=== PATIENT | female | born 2000 | race Two or more races ===

== ENCOUNTER 2024-02-21 02:46 | Emergency (ER) | payer OTHER ==
[~2024-02-21] VITALS: Ht 160 cm; Wt 79.3 kg
[2024-02-21 03:20] VITALS: BP 121/85; PULSE 59; RESP 16; TEMP 97.9; O2SAT 99
[2024-02-21 05:46] LABS: Urine Bacteria FEW /hpf (None Seen); Urine Blood TRACE /uL (Negative); Urine Clarity Turbid (Clear); Urine Mucus FEW (None Seen); Urine Protein, UAD Negative (Negative); Urine Specific Gravity 1.015 (1.001-1.035); Urine Urobilinogen Normal (Negative); Urine WBC 3 /hpf (0 - 5); Urine pH 5.5 (5.0-9.0)
[2024-02-21 05:47] LABS: Urine Color STRAW (Yellow)
[2024-02-21] MEDS ORDERED: ZOFR4T PO (06:02)
[2024-02-21] MEDS ORDERED: NITR-87 PO (06:02)
[2024-02-21] MEDS: ONDANSETRON ODT 4 MG TAB PO ONE (06:04)
== END 2024-02-21 06:10 | disposition home or self-care (01) ==
LOC: ER 02:46
DX: N39.0 Urinary tract infection, site not specified (principal)
CPT/HCPCS: 81001; 81025; 99283; Q0162

== ENCOUNTER 2025-02-05 05:53 | Emergency (ER) | payer OTHER ==
[~2025-02-05] VITALS: Ht 160 cm; Wt 83.8 kg
[~2025-02-05 05:53] MED LIST: NITR-87 PO; ZOFR4T PO
--- NOTE | 2025-02-05 06:21 | ED.PDOC ---
[employer] HPI Comments 24-year-old female presents here with vaginal bleeding. She is currently 8 weeks . . She states the other 2 pregnancies were elective . She states since yesterday she noticed some light spotting and then today she passed some clots. She does reports lower uterine cramping. Denies any dysuria. No recent cough cold runny nose fever or chills. She states she was planning on keeping this . Chief Complaint: Vaginal Bleed Time Seen by MD: 06:40 Reviewed Notes: Medications, Allergies Allergies: Coded Allergies: NO KNOWN ALLERGIES (Unverified , 02/21/24) Home Meds Active Scripts Ondansetron Odt 4MG Tab (ZOFRAN PO) 4 Mg Tb, 4 MG PO TID PRN for 3 Days, #9 TAB ODT TAB-DISSOLVE IN MOUTH, THEN SWALLOW Prov:[facility] 02/21/24 Nitrofurantoin Monohydrate Mac (Macrobid) 100 Mg Cap, 100 MG PO BID for 5 Days, #10 CAP Prov:[facility] 02/21/24 Information Source: Patient Mode of Arrival: Ambulatory Timing: Days Prehospital treatment: None Severity: Moderate Vaginal Discharge: None Vaginal Lesions: None Bleeding Quality: Bright Red, Clotted Vaginal Mass: None Onset Of Mass/Bleeding: Spontaneous Sexual Activity: Last Consensual [place]: Unknown Control: None History of: Current Symptoms of Possible : Missed Period Associated Signs and Symptoms: Vaginal Bleeding, Cramping Past Medical History PAST MEDICAL HISTORY: Denies Surgical History: Denies all surgeries [employer]CH[employer] History: No Pertinent [employer]OR [employer]CH[employer] History Family History Family History: Reviewed,noncontributory to illness Social History Smoker: Non-Smoker Alcohol: Denies ETOH Use Drugs: Denies Drug Use Lives In: Home Constitutional: denies: chills, diaphoresis, fatigue, fever, malaise, sweats, weakness, others EENTM: denies: blurred vision, double vision, ear bleeding, ear discharge, ear drainage, ear pain, ear ringing, eye pain, eye redness, hearing loss, mouth pain, mouth swelling, nasal discharge, nose bleeding, nose congestion, nose pain, photophobia, tearing, throat pain, throat swelling, voice changes, others Respiratory: denies: cough, hemoptysis, orthopnea, SOB at rest, shortness of breath, SOB with excertion, stridor, wheezing, others Cardiovascular: denies: chest pain, dizzy spells, diaphoresis, Dyspnea on exertion, edema, irregular heart beat, left arm pain, lightheadedness, palpitations, PND, syncope, others Gastrointestinal: denies: abdomen distended, abdominal pain, blood streaked bowels, constipated, diarrhea, dysphagia, difficulty swallowing, hematemesis, melena, nausea, poor appetite, poor fluid intake, rectal bleeding, rectal pain, vomiting, others Genitourinary: reports: abnormal vagina bleeding, pain (suprapubic cramping), ; denies: burning, dyspareunia, dysuria, flank pain, frequency, hematuria, incontinence, vagina discharge, urgency, others Neurological: denies: dizziness, fainting, headache, left sided numbness, left sided weakness, numbness, paresthesia, pre-existing deficit, right sided num bness, right sided weakness, seizure, speech problems, tingling, tremors, weakness, others Musculoskeletal: denies: back pain, gout, joint pain, joint swelling, muscle pain, muscle stiffness, neck pain, others Integumetry: denies: bruises, change in color, change in hair/nails, dryness, laceration, lesions, lumps, rash, wounds, others Allergic/Immunocompromised: denies: Difficulty Healing, Frequent Infections, Hives, Itching, others Hematologic/Lymphatic: denies: anemia, blood clots, easy bleeding, easy bruising, swollen glands, others Endocrine: denies: excessive hunger, excessive sweating, excessive thirst, excessive urination, flushing, intolerance to cold, intolerance to heat, unexplained weight gain, unexplained weight loss, others Psychiatric: denies: anxiety, bipolar disorder, depression, hopeless, panic disorder, schizophrenia, sleepless, suicidal, others All Other Systems: Reviewed and Negative Physical Exam General Appearance: No Apparent Distress, Normal HEENT: Normal ENT Inspection, Pharynx Normal, TMs Normal Neck: Full Range of Motion, Non-Tender, Normal, Normal Inspection Respiratory: Chest Non-Tender, Lungs Clear, No Accessory Muscle Use, No Respiratory Distress, Normal Breath Sounds Cardiovascular: No Edema, No JVD, No Murmur, No Gallop, Normal Peripheral Pulses, Regular Rate/Rhythm Breast Exam: Deferred Gastrointestinal: No Organomegaly, Non Tender, No Pulsatile Mass, Normal Bowel Sounds, Soft Genitalia: Deferred Pelvic: Deferred Rectal: Deferred Extremities: No calf tenderness, Normal capillary refill, Normal inspection, Normal range of motion, Non-tender, No pedal edema Musculoskeletal : Apperance: Normal Neurologic: Alert, senior recruiter II-XII nml as Tested, No Motor Deficits, Normal Affect, Normal Mood, No Sensory Deficits Cerebellar Function: Normal Reflexes: Normal Skin: Dry, Normal Color, Warm Lymphatic: No Adenopathy Was a procedure done? Was a procedure done?: No Differential Diagnosis ([employer]CH[employer]URE) Vaginal Bleeding: - Complete, - Incomplete, - Inevitable, - Missed, - Threatened, Ectopic , Placenta Previa, UTI, Other Mass / Lesion: Other Vaginal Discharge: , Other X-Ray, Labs, Meds, VS Vital Signs Date Time Temp Pulse Resp B/P (MAP) Pulse Ox O2 Delivery O2 Flow Rate FiO2 02/05/25 10:24 97.8 56 16 119/71 (87) 99 97.8 02/05/25 05:55 98.4 66 18 135/64 98 98.4 Lab Test 02/05/25 06:38 02/05/25 06:01 Range/Units White Blood Count 7.3 4.4-10.8 10^3/uL Red Blood Count 4.44 4.0-5.20 10^6/uL Hemoglobin 12.6 12.2-16.2 g/dL Hematocrit 37.0 36.0-46.0 % Mean Corpuscular Volume 83.4 80.0-100.0 fL Mean Corpuscular Hemoglobin 28.4 28.0-32.0 pg Mean Corpuscular Hemoglobin Concent 34.0 32.0-36.0 g/dL Red Cell Distribution Width 13.5 11.8-14.3 % Platelet Count 231 140-450 10^3/uL Mean Platelet Volume 9.3 6.9-10.8 fL Neutrophils (%) (Auto) 60.3 37.0-80.0 % Lymphocytes (%) (Auto) 26.9 10.0-50.0 % Monocytes (%) (Auto) 10.5 0.0-12.0 % Eosinophils (%) (Auto) 1.7 0.0-7.0 % Basophils (%) (Auto) 0.6 0.0-2.0 % Neutrophils # (Auto) 4.4 1.6-8.6 10 ^3/uL Lymphocytes # (Auto) 2.0 0.4-5.4 10 ^3/uL Monocytes # (Auto) 0.8 0-1.3 10 ^3/uL Eosinophils # (Auto) 0.1 0-0.8 10 ^3/uL Basophils # (Auto) 0 0-0.2 10 ^3/uL Nucleated Red Blood Cells 0.1 % Sodium Level 141 136-145 mmol/L Potassium Level 4.1 3.5-5.1 mmol/L Chloride Level 105 98-107 mmol/L Carbon Dioxide Level 27 20-31 mmol/L Anion Gap 9 5-15 Blood Urea Nitrogen 8 L 9-23 mg/dL Creatinine 0.86 0.550-1.02 mg/dL Glomerular Filtration Rate Calc 98 >90 mL/min BUN/Creatinine Ratio 9.3 L 10.0-20.0 Serum Glucose 92 74-106 mg/dL Calcium Level 9.1 8.7-10.4 mg/dL Beta HCG, Quantitative 4733.3 H 1.5-4.2 mIU/mL Urine Color Red H Yellow Urine Clarity Ex.turbid Clear Urine pH 6.5 5.0-9.0 Urine Specific [place] 1.009 1.001-1.035 Urine Protein 2+ H Negative Urine Ketones Negative Negative Urine Blood 3+ H Negative /uL Urine Nitrite Negative Negative Urine Bilirubin Negative Negative Urine Urobilinogen Normal Negative mg/dL Urine Leukocyte Esterase Trace Negative /uL Urine RBC 8552 0 - 4 /hpf Urine Microscopic WBC 0-5 /HPF Urine Squamous Epithelial Cells None seen <5 /hpf Urine Bacteria None seen None Seen /hpf Urine Glucose Normal Normal mg/dL [facility] [id number] [place] [id number] Ph: [phone] DIAGNOSTIC IMAGING Diagnostic Imaging Report : [id number] Signed PATIENT: MICHEAL KEENANT: [id number] UNIT: [id number] : 2000 LOC: ER ROOM / BED: / AGE / SEX: 24 / F ADM STATUS: REG ER SERVICE [id number] ORDERING PHYSICIAN: MARIAMA OLIAVS MD PROCEDURE(s): OB4US - OB ULTRASOUND COMP LESS 14WKS REASON: Rule out ectopic ORDER NUMBER(s): [id number], ACCESSION NUMBER(s): [id number] US OB ULTRASOUND COMP LESS 14WKS HISTORY: Rule out ectopic COMPARISON: US OB TRANS VAGINAL US on DOS: 02/05/25 TECHNIQUE: Transabdominal and transvaginal images with color doppler were obtained of the pelvis. FINDINGS: Uterus: - Measures 8.0 x 5.7 x 4.8 cm in length. - Mass lesions: None - Intrauterine : Not seen - Gestational sac: Not seen - Yolk sac: Not seen - Embryonic pole: Not seen [place] rump length: Not seen Mean sac diameter: Not seen Embryonic heart activity: Not seen Subchorionic hematomas: Not seen Right ovary: - Measures 2.7 x 2.3 x 1.6 cm - Vascularity: Normal flow on Doppler images. - Mass lesions: None Left ovary: - Measures 3.0 x 1.3 x 2.3 cm - Vascularity: Normal flow on Doppler images. - Mass lesions: None Adnexal masses: None Free fluid: None Other: None IMPRESSION: No intrauterine visualized and may be too early to date. Consider follow up pelvic US and beta HCG. Normal appearing bilateral ovaries. No perigestational hemorrhage. ATED BY: JASON PINZON MD DICTATED DATE/TIME: 02/05/25855 SIGNED BY: JASON PINZON MD SIGNED DATE/TIME: 02/05/25855 CC: 24-year-old female presents here with vaginal bleeding. She is currently 8 weeks . Currently due to previous elective abortions. At this time I have ordered a CBC BMP, Rh screen, urinalysis as well as a ultrasound of the uterus. I am concerned for ectopic versus complete/threatened at this time. CBC BMP have returned normal. Based on Rh screen patient does not require RhoGAM. Ultrasound today demonstrates no intrauterine . It is possible this may be too early to date. She does have a beta quant of 4300 today. She has a follow up with her appointment with her OBGYN in 2 days. I have given her a copy of her ultrasound report and also her beta quant number today and advised her to follow up with her OBGYN for repeat blood work to determine the status of the baby. Patient agreeable. Time of 1ST Reevaluation: 07:10 Reevaluation 1ST: Unchanged Patient Education/Counseling: Diagnosis, Treatment Family Education/Counseling: No Family Present Departure 1 Departure Time of Disposition: 10:33 Impression: Primary Impression: Threatened Disposition: HOME / SELF CARE / HOMELESS Condition: Stable Additional Instructions: Follow up with her OBGYN on Friday for repeat blood work of your beta quantitative. Your beta quantitative today is 4733.[address] [place] [address] Ph: [phone] DIAGNOSTIC IMAGING Diagnostic Imaging Report : [id number] Signed PATIENT: MICHEAL KEENAN ACCT: [id number] UNIT: [id number] : 2000 LOC: ER ROOM / BED: / AGE / SEX: 24 / F ADM STATUS: REG ER SERVICE ORDERING PHYSICIAN: MARIAMA OLIVAS MD PROCEDURE(s): OB4US - OB ULTRASOUND COMP LESS 14WKS REASON: Rule out ectopic ORDER NUMBER(s): [id number], ACCESSION NUMBER(s): [id number] US OB ULTRASOUND COMP LESS 14WKS HISTORY: Rule out ectopic COMPARISON: US OB TRANS VAGINAL US on DOS: 02/05/25 TECHNIQUE: Transabdominal and transvaginal images with color doppler were obtained of the pelvis. FINDINGS: Uterus: - Measures 8.0 x 5.7 x 4.8 cm in length. - Mass lesions: None - Intrauterine : Not seen - Gestational sac: Not seen - Yolk sac: Not seen - Embryonic pole: Not seen [place] rump length: Not seen Mean sac diameter: Not seen Embryonic heart activity: Not seen Subchorionic hematomas: Not seen Right ovary: - Measures 2.7 x 2.3 x 1.6 cm - Vascularity: Normal flow on Doppler images. - Mass lesions: None Left ovary: - Measures 3.0 x 1.3 x 2.3 cm - Vascularity: Normal flow on Doppler images. - Mass lesions: None Adnexal masses: None Free fluid: None Other: None IMPRESSION: No intrauterine visualized and may be too early to date. Consider follow up pelvic US and beta HCG. Normal appearing bilateral ovaries. No perigestational hemorrhage. ATED BY: JASON PINZON MD DICTATED DATE/TIME: 02/05/25 0856 Discharged With: Self Critical Care Note Critical Care Time?: No Stability Stability form required: No Heart Score Heart Score: Heart Score Response (Comments) Value History N/A 0 EKG N/A 0 Age N/A 0 Risk Factors N/A 0 Troponin N/A 0 Total 0 I personally scribed for MARIAMA OLIVAS MD ([email or web address]) on 02/05/25 at 06:21. Electronically submitted by Portia Mora ([email or web address]). I personally scribed for MARIAMA OLIVAS MD ([email or web address]) on 02/05/25 at 06:49. Electronically submitted by Portia Mora ([email or web address]). I personally scribed for MARIAMA OLIVAS MD ([email or web address]) on 02/05/25 at 09:53. Electronically submitted by Portia Mora ([email or web address]). MARIAMA OLIVAS MD Feb 05, 2025 06:21
[2025-02-05 07:14] LABS: Hematocrit 37.0 % (36.0-46.0); Hemoglobin 12.6 g/dL (12.2-16.2); Mean Corpuscular Hemoglobin 28.4 pg (28.0-32.0); Mean Corpuscular Volume 83.4 fL (80.0-100.0); Nucleated Red Blood Cells % 0.1 %
[2025-02-05 07:27] LABS: Chloride 105 mmol/L (98-107); Potassium 4.1 mmol/L (3.5-5.1); Sodium 141 mmol/L (136-145)
[2025-02-05 07:28] LABS: Anion Gap 9 (5-15); Carbon Dioxide 27 mmol/L (20-31)
[2025-02-05 07:29] LABS: Calcium 9.1 mg/dL (8.7-10.4)
[2025-02-05 07:34] LABS: BUN/Creatinine Ratio 9.3 (10.0-20.0); Glucose 92 mg/dL (74-106)
[2025-02-05 07:42] LABS: Blood Urea Nitrogen 8 mg/dL (9-23)
[2025-02-05 08:25] LABS: Urine Protein, UAD 2+ (Negative)
--- NOTE | 2025-02-05 08:58 | DVH ---
US OB ULTRASOUND COMP LESS 14WKS HISTORY: Rule out ectopic COMPARISON: US OB TRANS VAGINAL US on DOS: 02/05/25 TECHNIQUE: Transabdominal and transvaginal images with color doppler were obtained of the pelvis. FINDINGS: Uterus: - Measures 8.0 x 5.7 x 4.8 cm in length. - Mass lesions: None - Intrauterine : Not seen - Gestational sac: Not seen - Yolk sac: Not seen - Embryonic pole: Not seen [place] rump length: Not seen Mean sac diameter: Not seen Embryonic heart activity: Not seen Subchorionic hematomas: Not seen Right ovary: - Measures 2.7 x 2.3 x 1.6 cm - Vascularity: Normal flow on Doppler images. - Mass lesions: None Left ovary: - Measures 3.0 x 1.3 x 2.3 cm - Vascularity: Normal flow on Doppler images. - Mass lesions: None Adnexal masses: None Free fluid: None Other: None IMPRESSION: No intrauterine visualized and may be too early to date. Consider follow up pelvic US and b eta HCG. Normal appearing bilateral ovaries. No perigestational hemorrhage.
[2025-02-05 11:02] VITALS: BP 122/64; PULSE 62; RESP 18; TEMP 97.6; O2SAT 98
== END 2025-02-05 11:07 | disposition home or self-care (01) ==
LOC: ER 05:58
DX: O20.0 Threatened abortion (principal); Z79.899 Other long term (current) drug therapy; Z3A.08 8 weeks gestation of pregnancy
CPT/HCPCS: 36415; 76801; 76817; 80048; 81001; 84702; 85025; 86850; 86900; 86901